=== PATIENT | male | born 1965 | race Caucasian/White ===

== ENCOUNTER 2017-05-09 20:18 | Emergency (ER) | payer MEDICARE ==
[2017-05-09] MEDS ORDERED: KETOROLAC TROMETHAMINE 30MG/ML ONE (20:47)
[2017-05-09] MEDS ORDERED: MORPHINE SULFATE 4 MG/1ML SYG ONE (21:36)
== END 2017-05-09 23:04 | disposition home or self-care (01) ==
LOC: EDH 20:18
DX: G89.29 Other chronic pain (principal); M54.5 Low back pain
CPT/HCPCS: 72131; 72192; 96374; 96375; 99284; J1885; J2270